=== PATIENT | female | born 1970 | race Caucasian/White ===

== ENCOUNTER → 2017-04-18 | Day surgery (SDC) | payer OTHER ==
[~2017-04-18] MED LIST: ACETAMINOPHEN 1000 MG/100 ML 100 ML IV ONE; ACETAMINOPHEN/HYDROcodone 325 MG/5 MG TAB ONE; BACITRACIN IM FOR SOLN 50,000 UNIT VIAL ONE; BUPIVACAINE/EPINEPHRINE 0.25% 50 ML VIAL ONE; GENTAMICIN SULFATE 80 MG/2 ML VIAL ONE; LACTATED RINGER'S 1000 ML INJ 1,000 ML ONE; LIDOCAINE 1%/EPINEPHrine 1:200,000 PF SOLN 30 ML VIAL ONE; MEPERIDINE HCL 25 MG/ML VIAL ONE; MIDAZOLAM HCL 2 MG/2 ML VIAL ONE; ONDANSETRON HCL 4 MG/2 ML VIAL IV PUSH ONE; PROPOFOL 200 MG/20 ML AMP IV ONE; SODIUM CHLORIDE 0.9% 20 ML VIAL ONE; ceFAZolin INJ 1,000 MG VIAL ONE
--- NOTE | 2017-04-18 12:30 | TN ---
cc: BRIGHT RUIZ M.D. DATE OF SURGERY 04/18/2017 PREOPERATIVE DIAGNOSIS Status post deflation of implants. PROCEDURE Removal and replacement of implants, saline for cohesive gels, [facility] Rahel Pimentel volume 485, serial number of the right breast implant device [id number] and the serial number of the left breast implant device is [id number]. SURGEON Bright Ruiz MD ANESTHESIA LMA general plus local, a total of 30 cc of 1% lidocaine and epinephrine mixed with 0.25% Marcaine in a 2:1 ratio. COMPLICATIONS None. PROCEDURE She was properly consented, marked, properly anesthetized, the skin sterilized with Betadine solution and sterile draping applied. Utilizing Tegaderm, the NAC was properly isolated throughout the case. Through the previous inframammary incision the capsule of the implant was opened. The saline implants were removed and those were deflated. Irrigation with antibiotic solution, triple antibiotic solution and saline was properly carried out. Capsulorrhaphies were done along the anterior axillary line with multiple [id number] fashion 0 silks. Capsulotomies were done, were needed mostly superomedial. The contralateral side was approached in exactly the same manner. With this I proceeded to perform introduction of the implants after isolating the skin with Tegaderm. The patient was sat up. Blunt touches were done in order to achieve best symmetry possible and then the wound was closed in multiple 2-0 Monocryl suture layers including the capsule, breast parenchyma, dermis and subcu. After Mastisol, Steri-Strips were applied along with 4x4s and a snug brassiere. She was awakened and extubated in the operating room, transferred back to postanesthesia care unit in stable condition. No complications appreciated. The patient tolerated the procedure fairly well. MD ORLANDO Lucia/EMILY /11:40 AM /12:18 PM
== END | disposition home or self-care (01) ==
LOC: ESDC 09:44
PROVIDERS: ATTEND Plastic Surgery
DX: Z41.1 Encounter for cosmetic surgery (principal)
CPT/HCPCS: 00402; 19325; 19328; C1789; J0131; J0690; J1580; J2175; J2250; J2405; J3010; J7120